=== PATIENT | female | born 1970 | race Caucasian/White ===

== ENCOUNTER 2024-01-07 07:02 | Emergency (ER) | payer MEDICAID ==
[~2024-01-07] VITALS: Ht 152.4 cm; Wt 50.0 kg
[~2024-01-07 07:02] MED LIST: ACET-812 PO; IBUP-1985 PO
[2024-01-07 07:11] VITALS: BP 154/99; PULSE 91; RESP 18; TEMP 97.8; O2SAT 98
== END 2024-01-07 09:38 | disposition left against medical advice (07) ==
LOC: ER 07:03
DX: K04.7 Periapical abscess without sinus (principal); Z53.21 Procedure and treatment not carried out due to patient leaving prior to being seen by health care provider
CPT/HCPCS: 99281